=== PATIENT | female | born 1975 | race Caucasian/White ===

== ENCOUNTER → 2021-02-12 00:36 | Outpatient (CLI) | payer OTHER, SELFPAY ==
[2021-02-12 20:23] LABS: SARS-CoV-2 RNA PCR Negative
== END ==
PROVIDERS: PCP Family Medicine; Visit Provider Surgery Plastic and Reconstructive Surgery
DX: Z01.812 Encounter for preprocedural laboratory examination (principal); Z20.822 Contact with and (suspected) exposure to COVID-19
CPT/HCPCS: C9803; U0003; U0005

== ENCOUNTER 2021-02-15 05:56 | Day surgery (SDC) | payer OTHER, SELFPAY ==
[2021-02-06 09:42] VITALS: BMI 28.0
[2021-02-15 06:09] VITALS: BMI 30.4
[2021-02-15 06:35] VITALS: BP 104/74; PULSE 76; RESP 16; TEMP 37.1; O2SAT 98
--- NOTE | 2021-02-15 06:54 | WPDHPUPDATE1 ---
History and Physical Update Update Date/Time: 02/15/21 06:54 History and Physical has been reviewed, including an updated exam of the patient. There are NO changes in the patient's condition. Risks, benefits, and alternatives have been discussed and questions answered. Patient agrees to proceed with procedure.
--- NOTE | 2021-02-15 07:01 | WPDANESEPPF ---
Anes - Initial Pre Proc Eval Procedure: Operation Date: 02/15/21 07:30 Proposed Procedures p Bilateral Breast Mastopexy with Galaflex - James Thomas MD Date/Time: 02/15/21 07:01 Surgeon: James Thomas MD Pre Op Diagnosis: Breast Ptosis Patient Data Age: 46 Gender: F Height: 1.64 m Weight: 81.55 kg Last Vital Signs Temp 37.1 C 02/15/21 06:35 Pulse 76 02/15/21 06:35 Resp 16 02/15/21 06:35 BP 104/74 02/15/21 06:35 Pulse Ox 98 02/15/21 06:35 Allergies Allergy/AdvReac Type Severity Reaction Status Date / Time No Known Allergies Allergy Verified 02/15/21 05:58 Home Medications Medication Instructions Recorded Confirmed Type bupropion HCl 300 mg PO DAILY 11/29/20 02/15/21 History levonorgestrel [Mirena] 1 device INTRAUTERINE ONCE 02/06/21 02/15/21 History ondansetron HCl [Zofran] 4 mg PO Q8H PRN 02/06/21 02/15/21 History Patient hx anesthesia problems: post op nausea/vomiting Family hx anesthesia problems: none PMFSH Past Medical History Medical History (Updated 02/15/21 @ 07:12 by Catrachito Cary DO) Depression Surgical History Surgical History History of breast augmentation implant exchange 08/2019 History of bunionectomy Bilateral 01/05 and 02/02 History of cosmetic plastic surgery Breast lift and implants 06/2007 Social History Social History Smoking status: Never smoker Alcohol intake: current Drinks per week: 3 Substance use: never Substance use type: does not use Living arrangements: with family Gender identity (if verbalized by the patient): Female Spiritual care concerns: No Anes - Eval Final PreProcedure Day of Procedure 02/15/21 07:01 Patient weight: obese Heart: regular rate and rhythm Lungs: clear to auscultation and normal air movement Airway: Mallampati scale class II Neurological: alert and oriented Last oral intake: >/= 8 hours ASA classification: II Emergent: no Anesthetic plan: proceed Anesthesia type and monitoring: general LMA and standard monitoring Informed Consent: The patient's anesthetic plan and its attendant risks and benefits were discussed with the patient/family/POA. Questions were solicited and answers provided to the satisfaction of the patient/family/POA.
[2021-02-15] MEDS: LACTATED RINGERS 1,000 ML 30 ML IV CONT ×2 (07:13→10:05)
[2021-02-15] MEDS: SCOPOLAMINE 1.5 MG PATCH TRANSDERM (07:18)
[2021-02-15] MEDS: ceFAZolin 2 GM/D5W 50 ML 2 GM/50 ML BAG IVPB (07:33)
[2021-02-15] MEDS: BUPIVACAINE HCL 0.25% PF 30 ML VIAL INFILTRATE (08:04)
--- NOTE | 2021-02-15 09:44 | P.OP_ITS ---
Procedure Note - Detailed Date of procedure: 02/15/21 Pre-op diagnosis: Breast Ptosis History breast augmentation Post-op diagnosis: same Procedure performed: Bilateral mastopexy with galaflex Description of procedure: Preoperatively the risks, benefits, alternatives were discussed in extensive detail. I want her to be very realistic about the risks involved as well as expectations. Made sure answered all of her questions to her satisfaction. Consent obtained. She understands there is always risk of injury to the implant. This would require change at her expense. Patient was marked in the preoperative holding area with her verification. I made sure she was clear about where the nipple position would be and she was happy with this. She was taken to the operating room placed supine on the operating room table. Anesthesia provided by anesthesiology. Prepped and draped in a standard sterile fashion. Surgical time-out was taken. 1% lidocaine and 0.25% Marcaine with epinephrine was used to provide a field block. I tailor tacked the breast into position based on my preoperative markings and placed her in a sitting position. I verified these markings were correct. I marked out the nipple-areolar complex at 38 mm based on preoperative planning markings as well as intraoperative observations. She was placed supine. I de-epithelialized the superior pedicle. On the left I removed what appeared to be a permanent [place] suture. On the right no permanent suture was identified. I excised the central wedge is breast as well as inferiorly. There was no evidence of injury to implant on either side. I elevated medial and lateral flaps. A copiously irrigated with Betadine triple antibiotic solution. I trimmed the Galaflex as needed and sutured into the inferior portion of the breast using 3-0 Vicryl. I then closed using 2-0 Vicryl followed by 3-0 strata fix along the IMF and 3-0 Monocryl vertically and around the areola. Final closure was running subcuticular 4-0 Monocryl and tissue glue. She was taken to the PACU without difficulty. All instrument sponge counts were correct at the end the case. At the end of the procedure she had good nipple areola color and capillary refill. Anesthesia: GLMA Surgeon: James Thomas MD Estimated blood loss (mL): 30 Drains: No Packing: No Pathology: none sent Complications: No immediate complications Condition: stable Disposition: PACU Findings: Superior pedicle Inverted T Galaflex REF [id number]
[2021-02-15 09:58] VITALS: BP 130/83; PULSE 93; RESP 11; TEMP 36.5; O2SAT 98
[2021-02-15 10:13] VITALS: BP 130/85; PULSE 83; RESP 13; O2SAT 99
[2021-02-15] MEDS: fentaNYL CITRATE INJ (*CRX) 100 MCG/2 ML VIAL 25 MCG IV PUSH ×4 (10:15→10:35)
[2021-02-15 10:28] VITALS: BP 126/87; PULSE 86; RESP 8; O2SAT 94
[2021-02-15 10:39] VITALS: BP 125/91; PULSE 77; RESP 12; O2SAT 95
[2021-02-15] MEDS: ONDANSETRON INJ 4 MG/2 ML VIAL IV PUSH (10:50)
--- NOTE | 2021-02-15 10:59 | WPDANESPN ---
Anes - Prog Note Post-Op Date/Time: 02/15/21 10:59 Cardiovascular status: normal Respiratory status: normal Airway patency: baseline Mental status: baseline Post-Op hydration status: normal Vital Signs: Last Vital Signs Temp 36.5 C 02/15/21 09:58 Pulse 77 02/15/21 10:39 Resp 12 02/15/21 10:39 BP 125/91 H 02/15/21 10:39 Pulse Ox 95 02/15/21 10:39 Pain Score (VAS): 0 Post-procedural complaints: none Patient Feedback: Patient satisfied with anesthetic care.
[2021-02-15 11:09] VITALS: BP 129/90; PULSE 78; RESP 15; O2SAT 95
[2021-02-15] MEDS: oxyCODONE HCL (*CRX) 5 MG TAB IR PO (11:09)
== END 2021-02-15 11:30 | disposition home or self-care (01) ==
PROVIDERS: PCP Family Medicine; Visit Provider Surgery Plastic and Reconstructive Surgery
PROC: (CPT 19316; principal; 2021-02-15 07:30)
DX: N64.81 Ptosis of breast (principal)
CPT/HCPCS: 19316

== ENCOUNTER 2024-03-15 05:57 | Day surgery (SDC) | payer OTHER, SELFPAY ==
[2024-02-04 13:52] VITALS: BMI 29.1
--- NOTE | 2024-03-09 12:08 | P.HP_ITS ---
History of Present Illness History of Present Illness Consent: Risks, benefits, and alternatives have been discussed and questions answered. Patient agrees to proceed with procedure. Chief complaint: Neoplasm Screening Narrative: Margarita Sellers is a 49 year old female who is referred for colon cancer screening. Her brother, age 51, was recently diagnosed with colon cancer. Review of Systems Review of Systems: All systems reviewed & are unremarkable except as noted in HPI and below PMFSH Past Medical History Medical History Depression Surgical History Surgical History History of breast augmentation implant exchange 08/2019 History of bunionectomy Bilateral 01/05 and 02/02 History of cosmetic plastic surgery Breast lift and implants 06/2007 Social History Social History Smoking status: Never smoker Alcohol intake: current Drinks per week: 3 Alcohol use details: 2 per day Substance use: never Substance use type: does not use Living arrangements: with family Gender identity (if verbalized by the patient): Female Spiritual care concerns: No Meds Home Medications and Allergies Home Medications Medication Instructions Recorded Confirmed Type levonorgestrel 21 mcg/24 hours (8 1 device intrauterine ONCE 02/06/21 03/01/24 History yrs) 52 mg intrauterine device (Mirena) ondansetron HCl 4 mg tablet 4 mg PO Q8H PRN Nausea 02/06/21 03/01/24 History (Zofran) Daily Probiotic 1 tab-cap PO DIRECTED 03/01/24 03/01/24 History tirzepatide 03/01/24 History bupropion HCl 300 mg 24 hr tablet, 300 mg PO DAILY 03/15/24 03/15/24 History extended release Allergies Allergy/AdvReac Type Severity Reaction Status Date / Time No Known Allergies Allergy Verified 03/15/24 07:20 Exam 2 Const: General: alert Orientation/consciousness: patient oriented x3 Resp: Auscultation: clear to auscultation bilaterally Cardio: Rhythm: regular rhythm GI: GI Palp: Yes Soft to palpation and No Tenderness to palpation present (GI) Neuro: General: patient oriented x3 Assessment and Plan Assessment and plan (1) Colon cancer screening: Code(s): Z12.11 - Encounter for screening for malignant neoplasm of colon Status: Acute Assessment and Plan: Colonoscopy with possible biopsy or polypectomy or cautery or injection of substances.
--- NOTE | 2024-03-15 07:16 | P.PNAN_ITS ---
Anes - Initial Pre Proc Eval Procedure: Operation Date: 03/15/24 08:30 Proposed Procedures p Screening Colonoscopy - Karlo Jacob MD Date/Time: 03/15/24 07:16 Surgeon: Karlo Jacob MD Pre Op Diagnosis: Neoplasm Screening Patient Data Age: 49 Gender: F Height: 1.65 m Weight: 69.853 kg Allergies Allergy/AdvReac Type Severity Reaction Status Date / Time No Known Allergies Allergy Verified 03/15/24 07:20 Home Medications Medication Instructions Recorded Confirmed Type levonorgestrel 21 mcg/24 hours (8 1 device intrauterine ONCE 02/06/21 03/01/24 History yrs) 52 mg intrauterine device (Mirena) ondansetron HCl 4 mg tablet 4 mg PO Q8H PRN Nausea 02/06/21 03/01/24 History (Zofran) Daily Probiotic 1 tab-cap PO DIRECTED 03/01/24 03/01/24 History tirzepatide 03/01/24 History bupropion HCl 300 mg 24 hr tablet, 300 mg PO DAILY 03/15/24 03/15/24 History extended release Patient hx anesthesia problems: none Family hx anesthesia problems: none Results Review: All pre-operative results and documents have been reviewed as part of the pre- operative evaluation. [facility] Past Medical History Medical History Depression Surgical History Surgical History History of breast augmentation implant exchange 08/2019 History of bunionectomy Bilateral 01/05 and 02/02 History of cosmetic plastic surgery Breast lift and implants 06/2007 Social History Social History Smoking status: Never smoker Alcohol intake: current Drinks per week: 3 Alcohol use details: 2 per day Substance use: never Substance use type: does not use Living arrangements: with family Gender identity (if verbalized by the patient): Female Spiritual care concerns: No Anes - Eval Final PreProcedure Day of Procedure 03/15/24 07:16 Patient weight: overweight Heart: regular rate and rhythm Lungs: clear to auscultation Airway: Mallampati scale class II Neurological: alert and oriented Last oral intake: >/= 8 hours ASA classification: II Emergent: no Anesthetic plan: proceed Anesthesia type and monitoring: general GIVS and standard monitoring Results Review: All pre-operative results and documents have been reviewed as part of the pre- operative evaluation. Informed Consent: The patient's anesthetic plan and its attendant risks and benefits were discussed with the patient/family/POA. Questions were solicited and answers provided to the satisfaction of the patient/family/POA.
[2024-03-15 07:21] VITALS: BP 105/68; PULSE 75; RESP 16; TEMP 36.8; O2SAT 97
[2024-03-15] MEDS: LACTATED RINGERS 1,000 ML 150 ML IV CONT (07:25)
[2024-03-15 08:42] VITALS: BP 92/69; PULSE 74; RESP 16; O2SAT 98
[2024-03-15 08:52] VITALS: BP 111/75; PULSE 72; RESP 16; O2SAT 100
[2024-03-15 09:02] VITALS: BP 112/81; PULSE 72; RESP 18; O2SAT 100
--- NOTE | 2024-03-15 09:32 | WPDANESPN ---
Anes - Prog Note Post-Op Date/Time: 03/15/24 09:32 Cardiovascular status: normal Respiratory status: normal Airway patency: baseline Mental status: baseline Post-Op hydration status: normal Vital Signs: Last Vital Signs Temp 36.8 C 03/15/24 07:21 Pulse 72 03/15/24 09:02 Resp 18 03/15/24 09:02 BP 112/81 03/15/24 09:02 Pulse Ox 100 03/15/24 09:02 O2 Del Method Room Air 03/15/24 09:02 Pain Score (VAS): 0 I/O: Intake & Output 03/14/24 03/15/24 03/15/24 23:59 07:59 15:59 Intake Total 500 Balance 500 Post-procedural complaints: none Patient Feedback: Patient satisfied with anesthetic care. Other Findings: Patient vital signs back to baseline. Patient denies nausea and vomiting. Patient's pain under control. Patient OK for discharge.
== END 2024-03-15 09:15 | disposition home or self-care (01) ==
PROVIDERS: PCP Family Medicine; Visit Provider Internal Medicine Gastroenterology
PROC: 0DJD8ZZ Inspection of Lower Intestinal Tract, Via Natural or Artificial Opening Endoscopic (ICD-10-PCS; CPT 45378; principal; 2024-03-15 08:30)
DX: Z12.11 Encounter for screening for malignant neoplasm of colon (principal); D12.5 Benign neoplasm of sigmoid colon
CPT/HCPCS: 45385; 45381

== ENCOUNTER 2024-03-15 07:00 | Outpatient (NON) | payer OTHER, SELFPAY | END 2024-03-15 07:01 | disposition home or self-care (01) | PROVIDERS: PCP Family Medicine; Visit Provider Internal Medicine Gastroenterology | DX: Z12.11 Encounter for screening for malignant neoplasm of colon (principal) | CPT/HCPCS: 88305 ==

== ENCOUNTER 2024-12-14 10:41 | Emergency (ER) | payer OTHER, SELFPAY ==
[2024-12-14 10:58] VITALS: BP 125/85; PULSE 96; RESP 16; TEMP 37.1; O2SAT 100
--- NOTE | 2024-12-14 10:58 | ED.ABDPAIN ---
HPI - Abdominal Pain General Chief Complaint: Abdominal Pain Stated Complaint: R SIDE ABD PAIN Source: patient and RN notes reviewed Mode of arrival: ambulatory Limitations: no limitations History of Present Illness HPI narrative: 49 y/o female presented for c/o right lower abdominal pain since this morning, started with mid abdominal pain yesterday around 1600. Able to eat last night. Had large BM after dinner then developed nausea. Pain is worse with walking; Rates 7/10. Endorses subjective fever, 'not feeling well' but denies specific nausea. Denies vomiting or lethargy. Hx Tummy Tuck. Related Data Home Medications ?Medication ?Instructions ?Recorded ?Confirmed ?Last Taken ?Type levonorgestrel (Mirena) 1 device intrauterine ONCE 02/06/21 03/01/24 Unknown History ondansetron HCl 4 mg tablet 4 mg PO Q8H PRN Nausea 02/06/21 03/01/24 Unknown History (Zofran) Daily Probiotic 1 tab-cap PO DIRECTED 03/01/24 03/01/24 Unknown History tirzepatide 03/01/24 Unknown History bupropion HCl 300 mg 24 hr tablet, 300 mg PO DAILY 03/15/24 03/15/24 03/15/24 06:30 History extended release Allergies Allergy/AdvReac Type Severity Reaction Status Date / Time No Known Allergies Allergy Verified 03/15/24 07:20 Review of Systems Review of Systems: CONSTITUTIONAL: Denies body aches, fever, chills ENT: Denies rhinorrhea, congestion CARDIOVASCULAR: Denies chest pain, palpitations, or edema. RESPIRATORY: Denies cough or dyspnea. GASTROINTESTINAL: Endorses abdominal pain, nausea, vomiting, diarrhea. Denies hematochezia, melena, hematemesis GENITOURINARY: Denies dysuria, hematuria, or CVA tenderness. SKIN: Denies rash, itching, or wounds. MUSCULOSKELETAL: Denies back pain, joint pain, or myalgia. NEUROLOGIC: Denies headache, numbness, tingling, or weakness. All systems reviewed & are unremarkable except as noted in HPI and below PMFSH Past Medical History Medical History Depression Surgical History Surgical History History of breast augmentation implant exchange 08/2019 History of bunionectomy Bilateral 01/05 and 02/02 History of cosmetic plastic surgery Breast lift and implants 06/2007 Social History Social History Smoking status: Never smoker Alcohol intake: current Drinks per week: 3 Alcohol use details: 2 per day Substance use: never Substance use type: does not use Living arrangements: with family Gender identity (if verbalized by the patient): Female Spiritual care concerns: No Comments At time of signature, I have reviewed and agree with nursing past medical, surgical, social and family history unless otherwise noted. Please see nursing chart for further information. There is no relevant family history pertinent to the presenting complaint Exam Narrative: GENERAL: Well-appearing, and in no acute distress. ENT: Mucous membranes pink and moist. CHEST: No respiratory distress. Clear to auscultation. HEART: Regular rate and rhythm. No murmur appreciated. Normal peripheral pulses. ABDOMEN: abd soft, nondistended, normal active bowel sounds. Tender abdomen RLQ: No guarding, rebound tenderness, asymmetry EXTREMITIES: Normal range of motion. No edema. SKIN: Warm, dry, no rash. Capillary refill normal. Normal skin turgor. NEURO: No focal deficits. Alert and oriented x3. PSYCH: Normal affect. Course Course Emergency Course: Patient is aware of diagnosis, understands and agrees to treatment plan. Anticipatory guidance given. Patient agrees to follow-up as directed and is aware of reasons to seek care at the emergency department. Portions of this record may have been created with voice recognition software Level of Care: Express Care Visit MDM - Abdominal Pain MDM Narrative Medical decision making narrative: Patient presents with right lower quadrant abdominal pain. Advised ER transfer. Requesting [facility]. Differential Diagnosis Differential diagnosis: Likely abdominal pain, acute appendicitis, calculus of kidney, constipation, diverticulitis, gastroenteritis, pancreatitis, small bowel obstruction and other Discharge Plan Discharge Clinical Impression: Abdominal pain Patient Disposition: Acute Care Hospital Condition: Stable Patient Language: Polish Prescriptions: No Action Mirena 20 mcg/24 hours (6 yrs) 52 mg Intrauterine Device 1 device INTRAUTERINE ONCE ondansetron HCl [Zofran] 4 mg tablet 4 mg PO Q8H PRN (Reason: Nausea) Daily Probiotic 1 tab-cap PO DIRECTED tirzepatide bupropion HCl 300 mg tablet extended release 24 hr 300 mg PO DAILY Follow-up/Referrals: Torie,Trey Pedroza MD [Primary Care Provider] - Time of Disposition: 11:17
== END 2024-12-14 11:14 | disposition short-term general hospital (02) ==
PROVIDERS: Emergency Provider Nurse Practitioner Family; PCP Family Medicine
DX: R10.31 Right lower quadrant pain (principal); F32.A Depression, unspecified
CPT/HCPCS: 99212; G0463

== ENCOUNTER 2024-12-14 11:31 | Day surgery (SDC) | payer OTHER, SELFPAY ==
[2024-12-14] VITALS (11 sets, daily range): BP systolic 101–124; BP diastolic 65–77; PULSE 66–98; RESP 13–20; TEMP 36.2–37.4; O2SAT 97–100
--- NOTE | ~2024-12-14 | US_ITS ---
EXAMINATION: US abdomen limited DATE: 12/14/2024 13:45 INDICATION: Right upper quadrant abdominal pain. TECHNIQUE: Multiple grayscale and Doppler ultrasound images of the abdomen were obtained. COMPARISON: CT abdomen and pelvis 12/14/2024 FINDINGS: The visualized portions of the head, body, and tail of the pancreas are normal. The liver i s normal without focal lesion. There is normal flow in main portal vein. The gallbladder is normal in size. No gallstones or gallbladder wall thickening. The common duct is normal and measures 3 mm. IMPRESSION: 1. Normal right upper quadrant ultrasound. Reviewed, dictated and finalized at location B. [facility]
--- NOTE | ~2024-12-14 | CT_ITS ---
EXAMINATION: CT abdomen pelvis w con DATE: 12/14/2024 13:09 INDICATION: Right abdominal pain. TECHNIQUE: Computed tomography (CT) of the abdomen and pelvis was performed with 100 mL Omnipaque 350 intravenous contrast. Automated exposure control and iterative reconstruction technique were employe d. The dose-length product was 283.59 mGy-cm. COMPARISON: None. FINDINGS: The visualized portions of the lung bases demonstrate minimal atelectasis. No pleural effus ion. The heart size is normal. No pericardial effusion. Bilateral breast implants are noted. The live r, gallbladder, spleen, pancreas, adrenal glands, and kidneys are normal. There is an intrauterine de vice in expected position. The appendix is fluid-filled and dilated to 10 mm with adjacent fat strand ing, consistent with appendicitis. There are no pathologically enlarged lymph nodes. There is no free intraperitoneal fluid. 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 There is 6 mm anterolisthesis of L5 on S1. There is severe lower lumbar spondylosis. IMPRESSION: 1. Acute appendicitis. Reviewed, dictated and finalized at location B. DING SERVICEMAN IMPRESSION: 1. Acute appendicitis.
[2024-12-14 12:13] LABS: BEDSIDEPREGUCG Negative (Negative)
[2024-12-14 12:21] LABS: Basophils Absolute Auto 0.1 K/mm3 (0.0-0.1); Basophils Percent Auto 0.6 % (0.2-1.2); Eosinophils Absolute Auto 0.1 K/mm3 (0-0.3); Eosinophils Percent Auto 0.7 % (0-4.4); Hematocrit 43.4 % (37.0-47.0); Hemoglobin 14.5 g/dL (12.0-15.0); Immature Granulocyte Absolute 0.03 K/mm3 (0.00-0.031); Immature Granulocyte Percent A 0.3 % (0-0.5); Lymphocytes Absolute Auto 1.33 K/mm3 (0.9-3.2); Lymphocytes Percent Auto 15.4 % (18.3-44.2); Mean Corpuscular HGB Conc 33.4 g/dl (32-36); Mean Corpuscular Hemoglobin 31.2 pg (26-34); Mean Corpuscular Volume 93.3 fl (80-100); Mean Platelet Volume 10.8 fl (7.4-10.4); Monocytes Absolute Auto 0.4 K/mm3 (0.1-0.6); Monocytes Percent Auto 4.8 % (2.6-8.5); Neutrophils Absolute Auto 6.7 K/mm3 (1.3-6.7); Neutrophils Percent Auto 78.2 % (45.5-73.1); Platelet Count Result 230 k/mm3 (150-375); Red Blood Count 4.65 M/mm3 (4.2-5.4); Red Cell Distribution Width 12.5 % (11.5-14.5); White Blood Count 8.6 K/mm3 (4.5-10.0)
[2024-12-14 12:30] LABS: Alanine Aminotransferase 22 U/L (6-35); Albumin Level 4.8 g/dL (3.5-5.1); Alkaline Phosphatase 47 U/L (38-126); Anion Gap 11 mmol/L (4-12); Aspartate Amino Transferase 24 U/L (14-36); Bilirubin,Total 1.2 mg/dL (0.2-1.3); Blood Urea Nitrogen 11 mg/dL (7-17); Calcium 9.4 mg/dL (8.4-10.2); Carbon Dioxide 27 mmol/L (22-30); Chloride 103 mmol/L (98-107); Estimated CRCL calculation 75 ml/min; Estimated Glomerular Filt Rate > 60; Glucose 94 mg/dL (65-110); Lipase 46 U/L (23-300); Potassium 3.9 mmol/L (3.4-5.0); Sodium 141 mmol/L (137-145)
[2024-12-14 12:38] LABS: Add Urine Microscopic? YES; Appearance Urine Clear (Clear); Bacteria Urine 1+ /hpf; Bilirubin Urine Negative (Negative); Blood Urine Negative (Negative); Color Urine Yellow (Yellow); Glucose Urine UA Negative (Negative); Ketones Urine Trace mg/dL (Negative); Leukocyte Esterase Ur Trace LEU/UL (Negative); Nitrate Urine Negative (Negative); Non Pathogenic Casts 0-2; Protein Urine Negative (Negative); Specific Grav Ur 1.011 (1.001-1.035); Squamous Epithelial Cell Urine Moderate /hpf (Few); Urobilinogen Urine 0.2 mg/dL (<2.0); WBC Urine 0-5 /hpf (0-3)
[2024-12-14] MEDS: ONDANSETRON INJ 4 MG/2 ML VIAL IV PUSH (12:57)
[2024-12-14] MEDS: SODIUM CHLORIDE 0.9% IV 1,000 ML 999 ML IV CONT (12:59)
--- NOTE | 2024-12-14 13:15 | PC.NURSE ---
pt to ultrasound and cat scan at this time
--- NOTE | 2024-12-14 13:32 | ED.GENADULT ---
HPI - General Adult General Chief complaint: Abdominal Pain Stated complaint: abd pain Time Seen by Provider: 12/14/24 12:32 History of Present Illness HPI narrative: Patient 49-year-old female presents emergency department with chief complaint of right-sided abdominal pain patient reports that since around 3:00 a.m. this morning started having pain in the right side of her abdomen reports worsening right lower quadrant but does radiate to the right upper quadrant patient reports she had 1 episode of diarrhea reports she feels little nauseated but no vomiting. Patient reports symptoms are not improved by anything Related Data Home Medications ?Medication ?Instructions ?Recorded ?Confirmed ?Last Taken ?Type levonorgestrel (Mirena) 1 device intrauterine ONCE 02/06/21 03/01/24 Unknown History ondansetron HCl 4 mg tablet 4 mg PO Q8H PRN Nausea 02/06/21 03/01/24 Unknown History (Zofran) Daily Probiotic 1 tab-cap PO DIRECTED 03/01/24 03/01/24 Unknown History tirzepatide 03/01/24 Unknown History bupropion HCl 300 mg 24 hr tablet, 300 mg PO DAILY 03/15/24 03/15/24 03/15/24 06:30 History extended release valacyclovir 500 mg tablet mg 12/14/24 Unknown History Allergies Allergy/AdvReac Type Severity Reaction Status Date / Time No Known Allergies Allergy Verified 12/14/24 11:48 Review of Systems Review of Systems: A 10 system review of systems was completed on the patient and is negative except for what is stated in the HPI. Nursing and ancillary documentation was reviewed. [facility] Past Medical History Medical History Depression Surgical History Surgical History History of breast augmentation implant exchange 08/2019 History of bunionectomy Bilateral 01/05 and 02/02 History of cosmetic plastic surgery Breast lift and implants 06/2007 Social History Social History Smoking status: Never smoker Alcohol intake: current Drinks per week: 3 Alcohol use details: 2 per day Substance use: never Substance use type: does not use Living arrangements: with family Gender identity (if verbalized by the patient): Female Spiritual care concerns: No Exam Narrative: GENERAL: Well-appearing, well-nourished, and in no acute distress. HEAD: Normocephalic, atraumatic. EYES: PERRLA and EOMI. ENT: Nares clear, no rhinorrhea or epistaxis. Mucous membranes moist. NECK: Supple. CHEST: Clear to auscultation. No respiratory distress. HEART: Regular rate and rhythm. No murmur heard. Normal peripheral pulses. ABDOMEN: Soft, tenderness to palpation in the right upper quadrant and right lower quadrant, nondistended, normal active bowel sounds. EXTREMITIES: Normal range of motion. No edema. SKIN: Warm, dry, no rash. NEURO: No focal deficits. Alert and oriented x3. PSYCH: Normal mood and affect. Course Vital Signs Vital signs: Vital Signs Temperature 36.8 C 12/14/24 11:50 Pulse Rate 90 12/14/24 11:50 Respiratory Rate 18 12/14/24 11:50 Blood Pressure 117/77 12/14/24 11:50 Oxygen Delivery Room Air 12/14/24 11:50 Temperature 36.8 C 12/14/24 11:50 Pulse Rate 93 12/14/24 12:11 Respiratory Rate 14 12/14/24 12:11 Blood Pressure 101/77 12/14/24 12:32 Pulse Oximetry 100 12/14/24 12:32 Oxygen Delivery Room Air 12/14/24 11:50 Medical Decision Making MDM Narrative Medical decision making narrative: Differential diagnosis includes cholecystitis, diverticulitis, colitis, appendicitis Laboratory studies were obtained on the patient showed a white count of 8.6 electrolytes are within normal limits lipase was normal urinalysis showed trace ketones 1+ bacteria and trace leukocyte esterase Patient received IV fluids antiemetics Gallbladder ultrasound and CT scan of the abdomen pelvis was ordered CT scan shows evidence of acute appendicitis Vital Signs Vital Signs: Vital Signs Temperature 36.8 C 12/14/24 11:50 Pulse Rate 90 12/14/24 11:50 Respiratory Rate 18 12/14/24 11:50 Blood Pressure 117/77 12/14/24 11:50 Oxygen Delivery Room Air 12/14/24 11:50 Temperature 36.8 C 12/14/24 11:50 Pulse Rate 93 12/14/24 12:11 Respiratory Rate 14 12/14/24 12:11 Blood Pressure 101/77 12/14/24 12:32 Pulse Oximetry 100 12/14/24 12:32 Oxygen Delivery Room Air 12/14/24 11:50 Lab Data 12/14/24 12:10 12/14/24 12:10 Labs: Lab Results 12/14/24 12/14/24 Range/Units 12:10 12:11 WBC 8.6 (4.5-10.0) K/mm3 RBC 4.65 (4.2-5.4) M/mm3 Hgb 14.5 (12.0-15.0) g/dL Hct 43.4 (37.0-47.0) % MCV 93.3 (80-100) fl MCH 31.2 (26-34) pg MCHC 33.4 (32-36) g/dl RDW 12.5 (11.5-14.5) % Plt Count 230 (150-375) k/mm3 MPV 10.8 H (7.4-10.4) fl Immature Gran % (Auto) 0.3 (0-0.5) % Neut % (Auto) 78.2 H (45.5-73.1) % Lymph % (Auto) 15.4 L (18.3-44.2) % [place] % (Auto) 4.8 (2.6-8.5) % Eos % (Auto) 0.7 (0-4.4) % Baso % (Auto) 0.6 (0.2-1.2) % Lymph # (Auto) 1.33 (0.9-3.2) K/mm3 [place] # (Auto) 0.4 (0.1-0.6) K/mm3 Eos # (Auto) 0.1 (0-0.3) K/mm3 Baso # (Auto) 0.1 (0.0-0.1) K/mm3 Abs Immat Gran (auto) 0.03 (0.00-0.031) K/mm3 Absolute Neuts (auto) 6.7 (1.3-6.7) K/mm3 Absolute Nucleated RBC 0.000 (0.0-0.012) K/mm3 Nucleated RBC % 0.0 (0.0-0.2) % Sodium 141 (137-145) mmol/L Potassium 3.9 (3.4-5.0) mmol/L Chloride 103 (98-107) mmol/L Carbon Dioxide 27 (22-30) mmol/L Anion Gap 11 (4-12) mmol/L BUN 11 (7-17) mg/dL Creatinine 0.68 L (0.7-1.0) mg/dL Estim Creat Clear Calc 75 ml/min Estimated GFR > 60 (59 - ) Glucose 94 (65-110) mg/dL Calcium 9.4 (8.4-10.2) mg/dL Total Bilirubin 1.2 (0.2-1.3) mg/dL AST 24 (14-36) U/L ALT 22 (6-35) U/L Alkaline Phosphatase 47 (38-126) U/L Total Protein 7.0 (6.3-8.2) g/dL Albumin 4.8 (3.5-5.1) g/dL Lipase 46 (23-300) U/L Urine Color Yellow (Yellow) Urine Appearance Clear (Clear) Urine pH 6.0 (5.0-9.0) Ur Specific [place] 1.011 (1.001-1.035) Urine Protein Negative (Negative) mg/dL Urine Glucose (UA) Negative (Negative) mg/dL Urine Ketones Trace H (Negative) mg/dL Ur Blood (Man) Negative (Negative) Urine Nitrate Negative (Negative) Urine Bilirubin Negative (Negative) Urine Urobilinogen 0.2 (<2.0) mg/dL Leukocyte Esterase Rfl Trace H (Negative) LASHAWN/UL Urine RBC 3-5 H (0-2) /hpf Urine WBC 0-5 (0-3) /hpf Ur Squamous Epith Cells Moderate (Few) /hpf Urine Bacteria 1+ H /hpf Urine Casts 0-2 POC Urine HCG, Qual Negative (Negative) Discharge Plan Discharge Clinical Impression: Abdominal pain, Acute appendicitis Patient Disposition: Still a Patient Condition: Stable Instructions: Antibiotic Form Patient Language: Sinhala Prescriptions: No Action valacyclovir 500 mg tablet Mirena 20 mcg/24 hours (6 yrs) 52 mg Intrauterine Device 1 device INTRAUTERINE ONCE ondansetron HCl [Zofran] 4 mg tablet 4 mg PO Q8H PRN (Reason: Nausea) Daily Probiotic 1 tab-cap PO DIRECTED tirzepatide bupropion HCl 300 mg tablet extended release 24 hr 300 mg PO DAILY Follow-up/Referrals: Torie,Trey Pedroza MD [Primary Care Provider] -
[2024-12-14] MEDS: PIPERACILLN/TAZ 3.375GM/NS50ML 3.375 GM/50 ML BAG IVPB (14:10)
[2024-12-14] MEDS: LACTATED RINGERS 1,000 ML 30 ML IV CONT ×2 (14:30→16:23)
--- NOTE | 2024-12-14 14:47 | WPDHPUPDATE1 ---
History and Physical Update Update Date/Time: 12/14/24 14:47 History and Physical has been reviewed, including an updated exam of the patient. There are NO changes in the patient's condition. Risks, benefits, and alternatives have been discussed and questions answered. Patient agrees to proceed with procedure.
--- NOTE | 2024-12-14 14:48 | PM.IMHP ---
H&P: HPI History of Present Illness Date/Time: 12/14/24 14:48 Chief Complaint: Right lower quadrant abdominal pain Narrative: This is a 49-year-old woman who presented to the emergency department with right lower quadrant abdominal pain. Her pain was starting out as vague upper abdominal pain yesterday but then localized to the right lower quadrant. She has been feeling somewhat feverish but does not report an actual fever. She has never had any symptoms like this in the past. Review of Systems Review of Systems: All systems reviewed & are unremarkable except as noted in HPI and below Constitutional: Constitutional: Denies chills, Reports fever(s), Denies headache(s) and Denies weight loss Eyes: Eyes: Denies change in vision ENT: Denies dizziness, Denies headache(s), Denies neck mass and Denies throat swelling Cardiovascular: Cardiovascular: Denies chest pain, Denies lightheadedness and Denies dyspnea Respiratory: Respiratory: Denies cough, Denies dyspnea and Denies wheezing Gastrointestinal: Gastrointestinal: Reports as per HPI Genitourinary: Genitourinary: Denies hematuria and Denies dysuria Musculoskeletal: Musculoskeletal: Reports as per HPI Integumentary/Breasts: Skin/Breast: Reports as per HPI Neurologic: Denies dizziness and Denies headache(s) Allergic/Immunologic: Allergic/Immunologic: Denies throat swelling and Denies wheezing PMFSH Past Medical History Medical History (Updated 12/14/24 @ 14:51 by Manuel Mortaaya DO) Depression Surgical History Surgical History (Updated 12/14/24 @ 14:49 by Manuel Morataya DO) History of abdominoplasty History of breast augmentation implant exchange 08/2019 History of bunionectomy Bilateral 01/05 and 02/02 History of cosmetic plastic surgery Breast lift and implants 06/2007 Social History Social History Smoking status: Never smoker Alcohol intake: current Drinks per week: 3 Alcohol use details: 2 per day Substance use: never Substance use type: does not use Living arrangements: with family Gender identity (if verbalized by the patient): Female Spiritual care concerns: No Meds Home Medications and Allergies Home Medications ?Medication ?Instructions ?Recorded ?Confirmed ?Type levonorgestrel (Mirena) 1 device intrauterine ONCE 02/06/21 03/01/24 History ondansetron HCl 4 mg tablet 4 mg PO Q8H PRN Nausea 02/06/21 03/01/24 History (Zofran) Daily Probiotic 1 tab-cap PO DIRECTED 03/01/24 03/01/24 History tirzepatide 03/01/24 History bupropion HCl 300 mg 24 hr tablet, 300 mg PO DAILY 03/15/24 03/15/24 History extended release valacyclovir 500 mg tablet mg 12/14/24 History Allergies Allergy/AdvReac Type Severity Reaction Status Date / Time No Known Allergies Allergy Verified 12/14/24 11:48 Vital Signs Vital Signs - 24 hr 12/14/24 11:50 12/14/24 12:11 12/14/24 12:32 Temperature 98.3 F Pulse Rate 90 93 Respiratory Rate 18 14 Blood Pressure 117/77 111/77 101/77 Pulse Oximetry 100 100 Oxygen Delivery Room Air Exam Const: General: no acute distress and alert Orientation/consciousness: patient oriented x3 HENMT: Head: normocephalic and atraumatic Ears: hearing grossly normal bilaterally Face/Nose/Sinus: Normal nares present Mouth: Yes Normal oral and palatal mucosa present Eyes: Periorbital: periorbital findings normal Sclera: sclerae normal EOM: EOMs intact bilaterally Neck: Neck: normal visual inspection, no lymphadenopathy and trachea midline Chest: Chest palpation & inspection: normal inspection of the chest Resp: Effort & Inspection: normal respiratory effort Auscultation: clear to auscultation bilaterally Cardio: Jugular venous distension: no JVD Rate: regular rate Rhythm: regular rhythm Heart sounds: S1 normal heart sound present and S2 normal heart sound present Peripheral pulses: Peripheral pulses 2+ throughout GI: Inspection: normal to inspection GI Palp: Yes Soft to palpation, Yes Tenderness to palpation present (GI) (Right lower quadrant), No Guarding due to palpation present (GI) and No Rebound tenderness present Percussion: Yes normal to percussion Auscultation: normal bowel sounds : General: Yes no CVA tenderness Back/Spine/Pelvis: Back: no CVA tenderness Neuro: General: patient oriented x3, no focal motor deficits and CN's II-XI intact bilaterally Cognition (Neuro): normal cognition Speech: normal speech Motor exam (neuro): 5/5 motor strength present throughout Extrem: General: capillary refill normal and no clubbing, cyanosis or edema H&P: Results Labs Labs: Short CBC 12/14/24 Range/Units 12:10 WBC 8.6 (4.5-10.0) K/mm3 Hgb 14.5 (12.0-15.0) g/dL Hct 43.4 (37.0-47.0) % Plt Count 230 (150-375) k/mm3 BMP 12/14/24 12:10 Sodium 141 Potassium 3.9 Chloride 103 Carbon Dioxide 27 BUN 11 Creatinine 0.68 L Glucose 94 Calcium 9.4 Liver Function 12/14/24 Range/Units 12:10 Total Bilirubin 1.2 (0.2-1.3) mg/dL AST 24 (14-36) U/L ALT 22 (6-35) U/L Alkaline Phosphatase 47 (38-126) U/L Albumin 4.8 (3.5-5.1) g/dL Urine 12/14/24 Range/Units 12:10 Urine Color Yellow (Yellow) Urine Appearance Clear (Clear) Urine pH 6.0 (5.0-9.0) Ur Specific [place] 1.011 (1.001-1.035) Urine Protein Negative (Negative) mg/dL Urine Glucose (UA) Negative (Negative) mg/dL Imaging CT scan - abdomen: Radiologist's impression: ITS Impressions Abdomen/Pelvis CT 12/14/24 13:13 IMPRESSION: 1. Acute appendicitis. Abdomen Ultrasound 12/14/24 13:48 IMPRESSION: 1. Normal right upper quadrant ultrasound. Assessment and Plan Assessment and plan (1) Acute appendicitis: Qualifiers: Acute appendicitis type: with localized peritonitis Appendicitis gangrene presence: unspecified whether gangrene present Appendicitis perforation presence: unspecified whether perforation present Appendicitis abscess presence: unspecified whether abscess present Qualified Code(s): K35.30 - Acute appendicitis with localized peritonitis, without perforation or gangrene Code(s): K35.80 - Unspecified acute appendicitis Status: Acute Assessment and Plan: I have reviewed the CT and discussed the findings with the patient. She has evidence of acute appendicitis. I have discussed both medical and surgical treatment options and patient feels comfortable proceeding with surgery. I have recommended laparoscopic appendectomy, possible open. I discussed the procedure, risks, benefits, and alternatives. Questions were answered. She received Zosyn IV in the emergency department. Will continue this perioperatively if the patient is admitted. Discussed that if the appendix shows no evidence of perforation or abscess, she could possibly be discharged later this evening.
[2024-12-14] MEDS: fentaNYL CITRATE INJ (*CRX) 100 MCG/2 ML VIAL 25 MCG IV PUSH (14:52)
--- NOTE | 2024-12-14 15:01 | WPDANESEPPF ---
Anes - Initial Pre Proc Eval Procedure: Operation Date: 12/14/24 16:30 Proposed Procedures p Laparoscopic Appendectomy, Possible Open - Manuel Morataya DO Date/Time: 12/14/24 15:01 Surgeon: Manuel Morataya DO Pre Op Diagnosis: abd pain Patient Data Age: 49 Gender: F Height: 1.65 m Weight: 56 kg Last Vital Signs Temp 36.8 C 12/14/24 11:50 Pulse 93 12/14/24 12:11 Resp 14 12/14/24 12:11 BP 101/77 12/14/24 12:32 Pulse Ox 100 12/14/24 12:32 O2 Del Method Room Air 12/14/24 11:50 Allergies Allergy/AdvReac Type Severity Reaction Status Date / Time No Known Allergies Allergy Verified 12/14/24 11:48 Home Medications ?Medication ?Instructions ?Recorded ?Confirmed ?Type levonorgestrel (Mirena) 1 device intrauterine ONCE 02/06/21 03/01/24 History ondansetron HCl 4 mg tablet 4 mg PO Q8H PRN Nausea 02/06/21 12/14/24 History (Zofran) Daily Probiotic 1 tab-cap PO DIRECTED 03/01/24 12/14/24 History tirzepatide 03/01/24 History bupropion HCl 300 mg 24 hr tablet, 300 mg PO DAILY 03/15/24 12/14/24 History extended release valacyclovir 500 mg tablet mg 12/14/24 History Laboratory Tests 12/14/24 12/14/24 12:10 12:11 WBC 8.6 K/mm3 (4.5-10.0) RBC 4.65 M/mm3 (4.2-5.4) Hgb 14.5 g/dL (12.0-15.0) Hct 43.4 % (37.0-47.0) MCV 93.3 fl (80-100) MCH 31.2 pg (26-34) MCHC 33.4 g/dl (32-36) RDW 12.5 % (11.5-14.5) Plt Count 230 k/mm3 (150-375) MPV 10.8 H fl (7.4-10.4) Immature Gran % (Auto) 0.3 % (0-0.5) Neut % (Auto) 78.2 H % (45.5-73.1) Lymph % (Auto) 15.4 L % (18.3-44.2) [place] % (Auto) 4.8 % (2.6-8.5) Eos % (Auto) 0.7 % (0-4.4) Baso % (Auto) 0.6 % (0.2-1.2) Lymph # (Auto) 1.33 K/mm3 (0.9-3.2) [place] # (Auto) 0.4 K/mm3 (0.1-0.6) Eos # (Auto) 0.1 K/mm3 (0-0.3) Baso # (Auto) 0.1 K/mm3 (0.0-0.1) Abs Immat Gran (auto) 0.03 K/mm3 (0.00-0.031) Absolute Neuts (auto) 6.7 K/mm3 (1.3-6.7) Absolute Nucleated RBC 0.000 K/mm3 (0.0-0.012) Nucleated RBC % 0.0 % (0.0-0.2) Sodium 141 mmol/L (137-145) Potassium 3.9 mmol/L (3.4-5.0) Chloride 103 mmol/L (98-107) Carbon Dioxide 27 mmol/L (22-30) Anion Gap 11 mmol/L (4-12) BUN 11 mg/dL (7-17) Creatinine 0.68 L mg/dL (0.7-1.0) Estim Creat Clear Calc 75 ml/min Estimated GFR > 60 (59 - ) Glucose 94 mg/dL (65-110) Calcium 9.4 mg/dL (8.4-10.2) Total Bilirubin 1.2 mg/dL (0.2-1.3) AST 24 U/L (14-36) ALT 22 U/L (6-35) Alkaline Phosphatase 47 U/L (38-126) Total Protein 7.0 g/dL (6.3-8.2) Albumin 4.8 g/dL (3.5-5.1) Lipase 46 U/L (23-300) Urine Color Yellow (Yellow) Urine Appearance Clear (Clear) Urine pH 6.0 (5.0-9.0) Ur Specific [place] 1.011 (1.001-1.035) Urine Protein Negative mg/dL (Negative) Urine Glucose (UA) Negative mg/dL (Negative) Urine Ketones Trace H mg/dL (Negative) Ur Blood (Man) Negative (Negative) Urine Nitrate Negative (Negative) Urine Bilirubin Negative (Negative) Urine Urobilinogen 0.2 mg/dL (<2.0) Leukocyte Esterase Rfl Trace H LASHAWN/UL (Negative) Urine RBC 3-5 H /hpf (0-2) Urine WBC 0-5 /hpf (0-3) Ur Squamous Epith Cells Moderate /hpf (Few) Urine Bacteria 1+ H /hpf Urine Casts 0-2 POC Urine HCG, Qual Negative (Negative) Patient hx anesthesia problems: post op nausea/vomiting Family hx anesthesia problems: none Results Review: All pre-operative results and documents have been reviewed as part of the pre-operative evaluation. [facility] Past Medical History Medical History (Updated 12/14/24 @ 14:51 by Manuel Morataya DO) Depression Surgical History Surgical History (Updated 12/14/24 @ 14:49 by Manuel Morataya DO) History of abdominoplasty History of breast augmentation implant exchange 08/2019 History of bunionectomy Bilateral 01/05 and 02/02 History of cosmetic plastic surgery Breast lift and implants 06/2007 Social History Social History Smoking status: Never smoker Alcohol intake: current Drinks per week: 3 Alcohol use details: 2 per day Substance use: never Substance use type: does not use Living arrangements: with family Gender identity (if verbalized by the patient): Female Spiritual care concerns: No Anes - Eval Final PreProcedure Day of Procedure 12/14/24 15:01 Patient weight: normal Heart: regular rate and rhythm Lungs: clear to auscultation Airway: Mallampati scale class II Neurological: alert and oriented Last oral intake: >/= 8 hours ASA classification: II Emergent: yes Anesthetic plan: proceed Anesthesia type and monitoring: general ETT and standard monitoring Results Review: All pre-operative results and documents have been reviewed as part of the pre-operative evaluation. Informed Consent: The patient's anesthetic plan and its attendant risks and benefits were discussed with the patient/family/POA. Questions were solicited and answers provided to the satisfaction of the patient/family/POA.
[2024-12-14] MEDS: SCOPOLAMINE 1 MG PATCH 1 PATCH TRANSDERM (15:07)
[2024-12-14] MEDS: BUPIVACAINE/EPINEPHRINE 0.5% 50 ML VIAL 30 ML INFILTRATE (15:46)
--- NOTE | 2024-12-14 16:19 | P.OP_ITS ---
Procedure Note - Detailed Date of Procedure 12/14/24 Pre-op Diagnosis Acute appendicitis Post-op Diagnosis Same Procedure Performed Laparoscopic appendectomy Surgeon Manuel Morataya, DO Anesthesia General and Local (0.5% bupivicaine with epinephrine) Indications This is a 49-year-old woman who presented to the ED with right lower quadrant abdominal pain. Her pain started about 2 days ago as vague upper abdominal pain that eventually localized to the right this morning. She denies any chills but was feeling feverish. She had never had any symptoms like this in the past. CT in the emergency department showed evidence of acute appendicitis. Discussions were made with the patient about treatment options and decision was made to proceed with laparoscopic appendectomy, possible open. Findings Laparoscopic appendectomy was performed. The appendix was then a retrocecal and retroperitoneal location and appeared dilated and inflamed. The base of the appendix appeared healthy and viable. There was no evidence of perforation or abscess. The appendix was removed and sent to the lab for pathology. Description of Procedure Procedure as well as risks, benefits, and alternatives were explained to the pa elizabeth. The patient agreed to proceed. Written consent was obtained and placed in chart prior to procedure. The patient was brought back to surgical suite. She was placed supine on operating table. Time-out was done to confirm the patient and procedure. The patient was then intubated by the Anesthesia Department. Her abdomen was prepped and draped in sterile fashion using chlorhexidine prep. A 5 mm incision was made just to the left of the patient's umbilicus and a 5 mm Optiview trocar was advanced through the abdominal layers under direct visualization. Once inside the peritoneal cavity, carbon dioxide insufflation was used to create a pneumoperitoneum. The camera was inserted and the abdomen was inspected. No immediate abnormalities were identified. The patient was then placed in slight Trendelenburg position and rotated to the left. A 5 mm incision was made in the suprapubic region in midline and a 5 mm trocar was inserted under direct visualization. A 12 mm incision was made in the left lower quadrant and a 12 mm trocar was inserted under direct visualization. The right lower quadrant was carefully inspected. The cecum was identified and then this was traced back to the appendix. The appendix was identified and grasped at the mesoappendix and lifted anteriorly. Careful blunt dissection was carried out at the base of the appendix through the mesoappendix using a [place] grasper. An Endo-YOUSUF 45 mm blue load stapler was then advanced across the base of the appendix and clamped and fired. A white reload was then clamped across the mesoappendix and fired. This freed up our appendix completely. It was then placed in an EndoCatch bag and removed through the left lower quadrant port. The staple lines were then inspected. Hemostasis appeared adequate and the staple lines appeared secure. The area was then irrigated with sterile saline. The pelvis was then carefully inspected and irrigated with sterile saline as well and the remainder of the abdomen was carefully inspected. The patient was then flattened out in bed. One final inspection was made around the abdominal cavity and no other abnormalities were seen. The left lower quadrant port was removed and a Jonathan-Reid cone was used to approximate the fascia with an 0 Vicryl simple interrupted suture. The remaining ports were then removed under direct visualization. The camera was removed and the pneumoperitoneum was released. 0.5% bupivacaine with epinephrine was infiltrated locally around each of the incisions. The skin of the incisions was then approximated using 4-0 Monocryl subcuticular suture and Exofin glue was applied on top. The patient was then awakened from anesthesia, extubated, and transferred to Recovery. Estimated Blood Loss 20 Urine Output 300 Pathology Yes (Appendix) Complications No immediate complications Condition Stable Disposition Same day [facility] Billing Surgery - Charge Forward: Surgery Billing
[2024-12-14] MEDS: oxyCODONE HCL (*CRX) 5 MG TAB IR PO (17:30)
== END 2024-12-14 18:00 | disposition home or self-care (01) ==
LOC: ANHED 13:52 → ANHSURGERY 14:25
PROVIDERS: Emergency Medicine; Emergency Provider Emergency Medicine; PCP Family Medicine; Visit Provider Surgery
PROC: 0DTJ4ZZ Resection of Appendix, Percutaneous Endoscopic Approach (ICD-10-PCS; CPT 44970; principal; 2024-12-14 16:30)
DX: K35.30 Acute appendicitis with localized peritonitis, without perforation or gangrene (principal); F32.A Depression, unspecified; Z98.890 Other specified postprocedural states
CPT/HCPCS: 44970; 36415; 74177; 76705; 80053; 81001; 81025; 83690; 85025; 88304; 96361; 96365; 96375; 99285; A9270; J0330; J1100; J1171; J2003; J2250; J2405; J2543; J2704; J3010; J7030; J7120; Q9967

== ENCOUNTER 2025-03-09 13:18 | Outpatient (CLI) | payer OTHER, SELFPAY ==
--- NOTE | ~2025-03-09 | US_ITS ---
Pelvic ultrasound. Clinical History: Abnormal uterine bleeding Technique: Realtime transabdominal and transvaginal scanning of the pelvis was performed. Color flow Doppler and Doppler spectral analysis were performed. Findings: The uterus is anteverted. The endometrial stripe has a thickness of 6 mm. IUD in satisfact ory position. No focal mass is identified. Cervical nabothian cysts noted. The right ovary measures 1.8 x 2.4 x 2.0 cm. No significant right ovarian or adnexal mass is seen. The left ovary measures 2.0 x 2.1 x 2.4 cm. No significant left ovarian or adnexal mass is seen. There is no evidence of free fluid in the cul de sac. Impression: IUD in place. No other significant findings. Reviewed, dictated and finalized at location . Impression: IUD in place. No other significant findings.
== END 2025-03-09 13:19 | disposition home or self-care (01) ==
LOC: GOSHIMG 13:18
PROVIDERS: PCP Student in an Organized Health Care Education/Training Program; Visit Provider Student in an Organized Health Care Education/Training Program
DX: N93.9 Abnormal uterine and vaginal bleeding, unspecified (principal); Z97.5 Presence of (intrauterine) contraceptive device
CPT/HCPCS: 76830; 76856

== ENCOUNTER 2025-07-20 14:25 | Outpatient (CLI) | payer OTHER, SELFPAY ==
--- OUTSIDE RECORDS SUMMARY | 2013-01-01 08:30 | XMS_ITS | Continuity of Care Document ---
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, [address] [place] [address] [address], [place], [place], [id number], [place] tel:[phone] [facility] No Information Ashli Armstrong. [address], [address], [place], [place], [id number], [place]. tel:[phone] Referring Provider: Javi Ordonez OD A, [address] [facility] [address] [facility], [place], [address]. tel:[phone] [facility], [address] [place] [address] [address], [place], [place], [id number], [place] tel:[phone] [facility] No Information 3 Morena OD Jake. [address] [facility], [place], [place], [id number], [place]. tel:[phone] [facility], [address] [place] [address] [address], [place], [place], [id number], [place] tel:[phone] [facility] No Information [facility] . [address] [facility], [place], [place], [id number], [place]. tel:[phone] Referring Provider: Javi Ordonez OD A, [address] [facility] [place], [address]. tel:[phone] Family History Family Member Type Diagnosis Age At Onset No Information Payers Payer name Insurance type Covered constitution party ID Authoriza tion(s) No Information Social History Type Description Quantity Date Captured Comments Sex Female Smoking Status No Information Chief Complaint And Reason For Visit No Information Reason For Referral Reason For Referral No Information History Of Present Illness Encounter Date Complaint History Of Prese nt Illness No Information Functional Status Date Functional Assessmen t No Information Instructions Date Instruction Additional Infor mation No Information Assessments Type Assessment Date No Information Patient Care Teams Name Effective Dates (start - stop) Status Members No Information
--- NOTE | ~2025-07-20 | MM_ITS ---
EXAMINATION: MM scrn jamal implant BI w angie INDICATION: Asymptomatic, referred for screening mammogram COMPARISON: None available TECHNIQUE: Digital Breast Tomosynthesis CC, MLO, and implant displaced CC and MLO views of Both breasts were obtained with computer-aided detection to assist in interpretation of the study. FINDINGS: There are scattered areas of fibroglandular density. Bilateral breast Retropectoral Silicone implants in place appears intact. No focal dominant mass, architectural distortion, or suspicious microcalcifications are identified. There are no features to suggest malignancy. IMPRESSION: 1. No evidence of malignancy in the breasts. 2. Both breasts Retropectoral Silicone implants appears intact. Recommend continued screening mammography BI-RADS 1, NEGATIVE Reviewed, dictated and finalized at location B.
--- OUTSIDE RECORDS SUMMARY | 2025-07-20 14:33 | XMS_ITS | Clinical Summary ---
Author Organization [facility] [place] Address [address] [place] [address] Care Team Providers Care Coal Digger Name Role Phone Karmen Brown MD Primary Care Provider [phone] Active Problems No known active problems Encounters Date Type Department Care Team Description 04/26/2025 External Device Data [facility] ABSTRACTION Provider, Abstract from Last 3 Months Social History Tobacco Use Types Packs/Day Years Used Date Smoking Tobacco: Never Assessed Comments Unknown Sex and Gender Information Value Date Recorded Sex Assigned at Not on file Legal Sex Female 4:39 AM RN BABY Gender Identity Not on file Sexual Orientation Not on file Plan of Treatment Health Maintenance Due Date Last Done Comments DTAP/TDAP/TD VACCINES (1 - Tdap) 1993 HEPATITIS B VACCINES (1 of 3 - 19+ 3-dose series) 12/26 HPV/Cotest (21-29) 1995 CERVICAL CANCER SCREENING 2004 HPV/Cotest (30-65) 2004 PAP SMEAR 2004 BREAST CANCER SCREENING 2014 FIT-DNA Q 3 years 2019 FIT/FOBT Q 1 year 2019 Flex Sig/CT Colonography Q 5 years 2019 ZOSTER VACCINE (1 of 2) 2024 INFLUENZA VACCINE (#1) 2025 COLORECTAL SCREENING 02/22/2034 02/23/2024 Colorectal Cancer Screening 02/22/2034 Care Teams Coal Digger Relationship Specialty Start Date End Date Karmen Brown MD [address] [place] [address] [facility] - General 03/15/01
--- OUTSIDE RECORDS SUMMARY | 2025-07-20 14:33 | XMS_ITS | Clinical Summary ---
Author Organization [facility] Address [address] [place] [address] Care Team Providers Care Spotlight Operator Name Role Phone Trey Vogt MD Primary Care Provider [phone] Allergies No known active allergies Medications buPROPion XL 300 MG 24 hr tablet Take 300 mg by mouth daily. 10/15/2019 Active valACYclovir 500 MG tablet Take 500 mg by mouth daily. 12/15/2019 Active Active Problems No known active problems Resolved Problems Problem Noted Date Diagnosed Date Resolved Date Lipoma of back 12/15/2019 12/27/2019 Family History Medical History Relation Comments Heart Disease Maternal Grandfather Heart Disease Mother Relation Status Comments Maternal Grandfather Mother Social History Tobacco Use Types Packs/Day Years Used Date Smoking Tobacco: Never Smokeless Tobacco: Never Alcohol Use Standard Drinks/Week Comments Yes 0 (1 standard drink = 0.6 oz pur e alcohol) weekly Comments No Sex and Gender Information Value Date Recorded Sex Assigned at Female 12/16/2019 2:36 PM CLAY TEMPERER Legal Sex Female 10:51 PM CLAY TEMPERER Gender Identity Female 12/16/2019 2:36 PM CLAY TEMPERER Sexual Orientation Not on file Last Filed Vital Signs Vital Sign Reading Time Taken Comments Blood Pressure 110/64 12/28/2019 3:27 PM CLAY TEMPERER Pulse 69 12/28/2019 3:27 PM CLAY TEMPERER Temperature 37 C (98.6 F) 12/20/2019 10:55 AM CLAY TEMPERER Respiratory Rate 20 12/20/2019 10:55 AM CLAY TEMPERER Oxygen Saturation 98% 12/20/2019 10:55 AM CLAY TEMPERER Inhaled Oxygen Concentration - - Weight 81.2 kg (179 lb) 12/28/2019 3:27 PM CLAY TEMPERER Height 166.4 cm (5' 5.5) 12/28/2019 3:27 PM CLAY TEMPERER Body Mass Index 29.33 12/28/2019 3:27 PM CLAY TEMPERER Plan of Treatment Health Maintenance Due Date Last Done Comments Cervical Cancer Screening Pa p Smear (Age 30 to 64) Every 3 Years 1974 Colorectal Cancer Screening Colonoscopy (10 Years) 1974 Annual Physical 1977 Hepatitis C 1992 DTaP, Tdap and Td Vaccines ( 1 - Tdap) 1993 Hepatitis B Vaccines (1 of 3 - 19+ 3-dose series) 1993 Cervical Cancer Screening Pa p with HPV Testing (Age 30 to 64) Every 5 Years 2004 Cervical Cancer Screening with HPV 2004 Mammogram Screening 2014 Pneumococcal Vaccine: 50+ Ye ars (1 of 1 - PCV) 2024 Zoster Vaccines (1 of 2) 2024 COVID-19 Vaccine (1 - 2023-2 5 season) 2024 Meningococcal B Vaccine Aged Out No l onger eligible based on patient's age to complete this topic Meningococcal Vaccine Aged Out No trevor giuliana eligible based on patient's age to complete this topic RSV Immunizations Under 20 Months Aged Out No longer eligible based on patient's age to complete this topic Insurance Care Teams Spotlight Operator Relationship Specialty Start Date End Date Trey Vogt MD PCP - General FAMILY PRACTICE 12/06/19
--- OUTSIDE RECORDS SUMMARY | 2025-07-20 14:33 | XMS_ITS | Encounter Summary ---
Author Organization [facility] Address [address] [place] [address] Care Team Providers Care Maintenance Parts Technician Name Role Phone Karmen Brown MD Primary Care Provider [phone] Encounter Details Date Type Department Care Team (Late st Contact Info) Description 03/15/2001 Emergency [facility] Jose García MD NO ADDRESS ON FILE Er, Authorized P NO ADDRESS ON FILE Other specified complication, antepartum(646.83) (Primary Dx) Social History Tobacco Use Types Packs/Day Years Used Date Smoking Tobacco: Never Assessed Comments Unknown Sex and Gender Information Value Date Recorded Sex Assigned at Not on file Legal Sex Female 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
== END 2025-07-20 14:26 | disposition home or self-care (01) ==
PROVIDERS: PCP Family Medicine; Visit Provider Student in an Organized Health Care Education/Training Program
DX: Z12.31 Encounter for screening mammogram for malignant neoplasm of breast (principal)
CPT/HCPCS: 77063; 77067